=== PATIENT | male | born 2000 | race African-American/Black ===

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

== ENCOUNTER 2018-07-25 11:50 | Emergency (ER) | payer MEDICAID, OTHER ==
[~2018-07-25] VITALS: Ht 170.2 cm; Wt 63.6 kg
[2018-07-25 12:51] VITALS: BP 119/77
== END 2018-07-25 12:55 | disposition home or self-care (01) ==
LOC: EMS 11:52
DX: L72.3 Sebaceous cyst (principal); L70.0 Acne vulgaris; J45.909 Unspecified asthma, uncomplicated; F15.90 Other stimulant use, unspecified, uncomplicated; F17.210 Nicotine dependence, cigarettes, uncomplicated; Z79.899 Other long term (current) drug therapy
CPT/HCPCS: 99406

== ENCOUNTER 2019-07-06 21:23 | Emergency (ER) | payer MEDICAID ==
[~2019-07-06] VITALS: Ht 170.2 cm; Wt 63.6 kg
[2019-07-07] MEDS ORDERED: DEXAMETHASONE SOD PHOS 4 MG/ML 5 ML VIAL IM ONE (02:00)
[2019-07-07 05:31] VITALS: BP 142/60
== END 2019-07-07 06:09 | disposition home or self-care (01) ==
LOC: EMS 21:24
DX: J02.8 Acute pharyngitis due to other specified organisms (principal); B97.89 Other viral agents as the cause of diseases classified elsewhere; J45.909 Unspecified asthma, uncomplicated; F17.210 Nicotine dependence, cigarettes, uncomplicated; Z79.899 Other long term (current) drug therapy
CPT/HCPCS: 36415; 86308; 87430; 96372; 99283; J1100